=== PATIENT | female | born 2000 | race Caucasian/White ===

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

== ENCOUNTER 2022-10-17 22:05 | Outpatient (CLI) | payer MEDICAID, SELFPAY ==
[2022-10-17 22:31] VITALS: PULSE 108; O2SAT 97
[2022-10-17 22:32] VITALS: BP 121/78; PULSE 101
[2022-10-17 22:41] VITALS: BMI 21.9
[2022-10-17 23:42] LABS: Absolute Neutrophil Count 9.8 X10^3/uL (2.0-7.7); Basophil# 0.07 X10^3/uL; Basophil% 0.5 % (0-1); Eosinophil# 0.26 X10^3/uL; Hematocrit 35.7 % (37-47); Hemoglobin 11.4 g/dL (12.0-15.0); Lymphocyte % 12.4 % (19-41); Mean Corp Hgb Conc 31.9 g/dL (32-36); Mean Corpuscular Hgb 26.5 pg (27.0-32.0); Mean Platelet Vol. 9.8 fl (6.2-12.0); Monocyte# 0.88 X10^3/uL; Monocyte% 6.8 % (0-10); NRBC Flagged by Analyzer 0 % (0-5); Neutrophil % 75.7 % (47-70); Platelet Count 324 K/mm3 (150-450); RBC Distribution Width CV 14.4 % (11.6-14.6); RBC Distribution Width SD 43.7 fl (35.1-43.9); White Blood Count 12.9 K/mm3 (4.4-11.0)
[2022-10-17 23:55] LABS: ALB/GLOB Ratio 0.7 RATIO (0.9-2.4); AST(SGOT) 13 U/L (15-37); Alanine Aminotransfer ALT/SGPT 10 U/L (13-56); Albumin, Serum 2.8 g/dL (3.2-5.0); Alkaline Phosphatase 139 U/L (45-117); Anion Gap 11 (5-15); BUN 11 mg/dL (7-18); BUN/Creat Ratio 20.1 RATIO (10-20); Calcium,Total 9.3 mg/dL (8.5-10.1); Chloride 102 mmol/L (98-107); Creatinine, Serum 0.55 mg/dL (0.55-1.02); EST Glomerular Filtration Rate 151 mL/min (>60); Est Glom Filt Rate - Afr Amer 183 mL/min (>60); Estimated Creatinine Clearance 182.36 ml/min; Globulin 4.2 g/dL (2.2-4.2); Glucose 77 mg/dL (74-106); Potassium 3.2 mmol/L (3.5-5.1); Sodium Level 136 mmol/L (136-145)
[2022-10-18 00:37] LABS: Color, Urine Yellow (Yellow); Glucose, Dipstick Normal (Normal); Leukocyte Esterase-Dipstick 500 /ul (Negative); Nitrite-Dipstick Negative (Negative); Occult Blood-Urine 10 /ul (Negative); Protein-Dipstick 30 mg/dl (Negative); Urine Clarity Sl. Cloudy (Clear); Urine Urobilinogen 1 mg/dl (Normal)
[2022-10-18 00:40] LABS: Urine Bilirubin Dipstick 1 mg/dL (Negative)
[2022-10-18 00:42] LABS: Ketone-Dipstick 150 mg/dl (Negative)
[2022-10-18] MEDS: Ondansetron 4 MG/2 ML Vial IV (01:19)
--- NOTE | 2022-10-20 10:08 | OB.TRI.PN_ITS ---
Progress Notes Progress Note: Female presents at 35w3d, presents to for nausea and vomiting. Laboratory Studies: Laboratory Tests 10/18/22 10/17/22 10/17/22 Range/Units 00:25 23:22 23:22 WBC 12.9 H (4.4-11.0) K/mm3 RBC 4.30 (4.2-5.4) M/mm3 Hgb 11.4 L (12.0-15.0) g/dL Hct 35.7 L (37-47) % MCV 83.0 (81-99) fL MCH 26.5 L (27.0-32.0) pg MCHC 31.9 L (32-36) g/dL RDW Std Deviation 43.7 (35.1-43.9) fl RDW Coeff of Jules 14.4 (11.6-14.6) % Plt Count 324 (150-450) K/mm3 MPV 9.8 (6.2-12.0) fl Immature Gran % (Auto) 2.600 H (0.0-0.9) % Neut % (Auto) 75.7 H (47-70) % Lymph % (Auto) 12.4 L (19-41) % Kimble % (Auto) 6.8 (0-10) % Eos % (Auto) 2.0 (0-5) % Baso % (Auto) 0.5 (0-1) % Absolute Neuts (auto) 9.8 H (2.0-7.7) X10^3/uL Absolute Lymphs (auto) 1.60 (0.83-4.51) X10^3/uL Nucleated RBC % 0 (0-5) % Sodium 136 (136-145) mmol/L Potassium 3.2 L (3.5-5.1) mmol/L Chloride 102 (98-107) mmol/L Carbon Dioxide 23.0 (21.0-32.0) mmol/L Anion Gap 11 (5-15) BUN 11 (7-18) mg/dL Creatinine 0.55 (0.55-1.02) mg/dL Estim Creat Clear Calc 182.36 ml/min Est GFR (MDRD) Af Amer 183 (>60) mL/min Est GFR (MDRD) Non-Af 151 (>60) mL/min BUN/Creatinine Ratio 20.1 H (10-20) RATIO Glucose 77 (74-106) mg/dL Calcium 9.3 (8.5-10.1) mg/dL Total Bilirubin 1.30 H (0.20-1.00) mg/dL AST 13 L (15-37) U/L ALT 10 L (13-56) U/L Alkaline Phosphatase 139 H (45-117) U/L Total Protein 7.0 (6.4-8.2) g/dL Albumin 2.8 L (3.2-5.0) g/dL Globulin 4.2 (2.2-4.2) g/dL Albumin/Globulin Ratio 0.7 L (0.9-2.4) RATIO Urine Color Yellow (Yellow) Urine Clarity Sl. Cloudy (Clear) Urine pH 6.0 (5.0 - 8.0) Ur Specific Ruffin 1.030 (1.002-1.030) Urine Protein 30 H (Negative) mg/dl Urine Glucose (UA) Normal (Normal) mg/dl Urine Ketones 150 A* (Negative) mg/dl Urine Occult Blood 10 H (Negative) /ul Urine Nitrite Negative (Negative) Urine Bilirubin 1 H (Negative) mg/dL Urine Urobilinogen 1 H (Normal) mg/dl Ur Leukocyte Esterase 500 H (Negative) /ul NST 135, moderate variability, accels, no decels, Category 1 Irregular contractions, mild Assessment & Plan (1) Nausea and vomiting: PLAN: Plan PO hydration and 1Liter LR IV bolus Zofran IV for nausea Unable to take PO K for hypokalemia but will follow up outpatient for testing and management D/C home
== END 2022-10-18 02:15 | disposition home or self-care (01) ==
LOC: WPOUT 22:11 → WP 22:12
PROVIDERS: Referring Provider Advanced Practice Midwife; Visit Provider Advanced Practice Midwife
DX: O21.2 Late vomiting of pregnancy (principal); Z3A.35 35 weeks gestation of pregnancy
CPT/HCPCS: 96374; 36415; 59025; 59050; 80053; 81002; 85025; 87086; 87088; J2405

== ENCOUNTER 2022-10-30 22:58 | Outpatient (CLI) | payer MEDICAID, SELFPAY ==
[2022-10-30 23:28] VITALS: PULSE 70; O2SAT 98
[2022-10-30 23:30] VITALS: BP 118/68; PULSE 80; TEMP 37
[2022-10-30 23:41] VITALS: BMI 22.4
--- NOTE | 2022-11-01 08:42 | OB.TRI.NOTE ---
HPI - General General Date of Admission: 10/30/22 Date of Service: 10/30/22 Chief Complaint: rule out labor HPI Narrative ELADIA RINCON, is a 22 F who presents w/ ctxs. PFSH PFSH Medical History Depression Seasonal allergies Home Medications 1 tab PO/SL DAILY 10/17/22 [History Last Taken 10/29/22 21:00] ondansetron HCl 4 mg tablet 4 mg PO Q8H 10/17/22 [History Last Taken 10/17/22 18:00] Allergy/AdvReac Type Severity Reaction Status Date / Time No Known Allergies Allergy Verified 10/30/22 23:39 Social History Smoking Status: Current some day smoker tobacco type: cigarettes NST FHR Rate Baby A Baseline: 120 Variability:: Moderate Accelerations:: 15 x 15 Decelerations:: None NST Reactive:: Yes FHR Category:: Category I Uterine Activity:: irritability, no regular ctxs Assessment & Plan (1) 37 weeks gestation of : PLAN: High risk primigravida at 37-2/7 weeks gestation for false labor after 37 weeks. Discharge home with routine follow-up or return as needed.
== END 2022-10-31 00:17 | disposition home or self-care (01) ==
LOC: WPPAT 23:07 → WP 23:08
PROVIDERS: Visit Provider Obstetrics & Gynecology
DX: O47.1 False labor at or after 37 completed weeks of gestation (principal); O99.333 Smoking (tobacco) complicating pregnancy, third trimester; F17.210 Nicotine dependence, cigarettes, uncomplicated; Z3A.37 37 weeks gestation of pregnancy
CPT/HCPCS: 59025; 59050

== ENCOUNTER 2022-11-10 12:28 | Inpatient (IN) | payer MEDICAID, SELFPAY ==
[2022-11-10] VITALS (48 sets, daily range): BP systolic 103–142; BP diastolic 55–92; PULSE 58–155; RESP 14; TEMP 36.1–37.1; O2SAT 82–100; BMI 26.1
[2022-11-10] MEDS: LACTATED RINGERS 500 ML 999 ML IV (12:35)
[2022-11-10 12:50] LABS: Absolute Lymphocyte Count 2.01 X10^3/uL (0.83-4.51); Absolute Neutrophil Count 11.6 X10^3/uL (2.0-7.7); Basophil# 0.07 X10^3/uL; Basophil% 0.5 % (0-1); Eosinophil# 0.59 X10^3/uL; Eosinophils% 3.9 % (0-5); Hematocrit 37.7 % (37-47); Hemoglobin 11.9 g/dL (12.0-15.0); Lymphocyte # 2.01 X10^3/ul (0.83-4.51); Lymphocyte % 13.2 % (19-41); Mean Corp Hgb Conc 31.6 g/dL (32-36); Mean Corpuscular Hgb 26.4 pg (27.0-32.0); Mean Corpuscular Volume 83.8 fL (81-99); Mean Platelet Vol. 10.7 fl (6.2-12.0); Monocyte# 0.86 X10^3/uL; Monocyte% 5.6 % (0-10); NRBC Flagged by Analyzer 0 % (0-5); Neutrophil # 11.58 X10^3/uL (2.7-7.7); Neutrophil % 75.9 % (47-70); Platelet Count 278 K/mm3 (150-450); RBC Distribution Width CV 15.4 % (11.6-14.6); RBC Distribution Width SD 47.1 fl (35.1-43.9); White Blood Count 15.3 K/mm3 (4.4-11.0)
[2022-11-10] MEDS: Lactated Ringers 1,000 ML 200 ML IV (13:06)
--- NOTE | 2022-11-10 13:08 | PCM.HP.OB ---
HPI - General General Date of Admission: 11/10/22 HPI Narrative ELADIA RINCON, is a 22 F at 38.6 weeks gestation who presents with spontaneous onset of labor. She started having contractions last night that have continued to increase in frequency and pain. Positive movement. Denies any loss of fluid or vaginal bleeding. complicated by uterine size discrepancy. EFW 9%. Maternal Data Information LATASHA Calculator Estimated Delivery Date Method Current WG Current Estimate 11/18/22 Manual 38w 6d PFSH PFSH Medical History Depression Seasonal allergies Home Medications 1 tab PO/SL DAILY 10/17/22 [History Last Taken 10/29/22 21:00] ondansetron HCl 4 mg tablet 4 mg PO Q8H 10/17/22 [History Last Taken 10/17/22 18:00] Allergy/AdvReac Type Severity Reaction Status Date / Time No Known Allergies Allergy Verified 10/30/22 23:39 Social History Smoking Status: Former smoker History Elective abortions Hx Para 0 Spontaneous abortions Hx # Term Pregnancies Ectopic pregnancies Hx # Pregnancies Multiple births # of living children Vital Signs Vital Signs Vital Signs: 11/10/22 12:25 11/10/22 12:25 11/10/22 12:20 Temperature Temperature Source Temporal Pulse Rate 66 Blood Pressure 134/80 H BP Systolic 134 BP Diastolic 80 11/10/22 12:20 Temperature 97.1 F L Temperature Source Pulse Rate Blood Pressure BP Systolic BP Diastolic Weight Weight: 166 lb 14.239 oz Body Mass Index (BMI) 26.1 Labs Labs Labs: Blood Type Pending Antibody Screen Pending Hct 37.7 % (37-47) Hgb 11.9 g/dL (12.0-15.0) L Syphilis Total Ab Pending GBS negative Assessment & Plan (1) 38 weeks gestation of : (2) Spontaneous onset of labor: (3) SGA (small for gestational age), , affecting care of mother, antepartum: (4) Primigravida: PLAN: Plan CE 5cm Admit to labor and delivery Routine labs Start IV fluids and run per orders GBS negative Epidural when indicated Anticipate Dr. Miller notified of admission and is collaborating physicain
[2022-11-10 13:18] LABS: ROM Internal Control Test YES-OK TO RESULT pt. (Internal QC)
[2022-11-10 13:20] LABS: ROM Patient Test POSITIVE (Negative)
[2022-11-10] MEDS: fentaNYL-bupivacaine (epidural) 100 ML BAG EPIDURAL (13:30)
[2022-11-10 13:40] LABS: Syphilis Antibodies Non-reactive
[2022-11-10] MEDS: Ondansetron 4 MG/2 ML Vial IV (15:39)
[2022-11-10] MEDS: Sodium Chloride 0.65% 1 SPRAY SPRAY.BTL 2 SPRAY NASAL (16:30)
[2022-11-10] MEDS: Oxytocin 10 UNITS/ML Vial IM (17:17)
[2022-11-10] MEDS: Oxytocin 15 Units/NS 250ml 15 UNITS/250 ML IV.SOLN 83 UNITS IV (17:22)
--- NOTE | 2022-11-10 17:38 | EX.PCM.OBRPT ---
Assessment & Plan (1) (spontaneous vaginal delivery): Maternal Data Information LATASHA Calculator Estimated Delivery Date Method Current WG Current Estimate 11/18/22 Manual 38w 6d Vaginal Delivery Maternal Presentation Maternal Presentation: Active Labor and Spontaneous Rupture of Membranes Maternal Presentation: that presented in spontaneous labor and was found to have SROM. Operative Information Date of Procedure: 11/10/22 Pre-Operative Diagnosis: Term gestation, Spontaneous labor, SROM Post-Operative Diagnosis: , live female Surgery / Procedure Performed: Spontaneous Vaginal Delivery Type of Anesthesia: Epidural Drain: Pitts to straight drain Estimated Blood Loss: 200 Time of Delivery: 17:12 Findings Description of Procedure: Patient found to be 10 cm/ +1 station. With minimal maternal effort, head delivered over intact perineum followed by remainder of infant body without traction. Vigorous female placed on maternal abdomen and was attended to by nursing staff. Pitocin IM given for active management of the third stage of labor. 3 vessel cord clamped and cut by FOB after delay and infant placed skin to skin with patient. Placenta delivered spontaneously and intact with guidance and maternal effort. Cord began to avulse during delivery of placenta. Two small vaginal abrasions repaired with singe stitch for hemostasis. Perineum intact. EBL 200 cc. APGARS 8/9. Fundus firm 3-4 below U. Patient and infant bonding well at this time. Patient will be formula feeding infant. Presentation: Vertex Amniotic Membrane Rupture Type: Spontaneous Amniotic Fluid Description: Clear Placental Delivery Description: Spontaneous Placenta Disposition: [facility] Cord Vessel Description: 3 Vessels Cord Entanglement: None Infant A Gender: Female (1 minute): 8 (5 minute): 9 Delayed Cord Clamping: Yes Post Vaginal Delivery Medications Given After Delivery: IM Pitocin Episiotomy Description: None Laceration: Vaginal Extension/lac (two small vaginal abrasions ) Complication Complications: None
[2022-11-10] MEDS: Oxymetazoline 0.05% 1 SPRAY SPRAY.BTL NASAL (19:18)
[2022-11-11] VITALS (8 sets, daily range): BP systolic 101–117; BP diastolic 55–66; PULSE 58–82; RESP 16; TEMP 36.2–36.8; O2SAT 97–99
--- NOTE | 2022-11-11 02:55 | NURSING ---
Report received from [facility], taking over pt care at this time.
--- NOTE | 2022-11-11 04:15 | NURSING ---
vaginal abrasions well approximated, no repair needed.
--- NOTE | 2022-11-11 08:47 | PN_ITS ---
Subjective Subjective patient seen at bedside, doing well. Patient reports good pain control. lochia mild. Objective Data Objective Data Vital Signs: Vital Signs Temp Pulse Resp BP Pulse Ox O2 Del Method 98.0 F 63 16 117/66 98 Room Air 11/11/22 07:48 11/11/22 07:48 11/11/22 07:48 11/11/22 07:48 11/11/22 07:48 11/11/22 07:48 Oxygen Delivery Method Room Air Weight: 75.7 kg Body Mass Index (BMI) 26.1 Intake & Output: Intake and Output for Last 24 Hours 11/09/22 11/10/22 11/11/22 23:59 23:59 23:59 Intake Total 1550 / 1550 Output Total 1650 / 1650 800 / 800 Balance -100 / -100 -800 / -800 Lab / Micro Data Result Diagrams: 11/10/22 12:35 Labs: Laboratory Results - last 24 hr 11/10/22 12:20: Vag Amniotic Fld Detect POSITIVE H 11/10/22 12:35: WBC 15.3 H, RBC 4.50, Hgb 11.9 L, Hct 37.7, MCV 83.8, MCH 26.4 L , MCHC 31.6 L, RDW Std Deviation 47.1 H, RDW Coeff of Jules 15.4 H, Plt Count 278, MPV 10.7, Immature Gran % (Auto) 0.900, Neut % (Auto) 75.9 H, Lymph % (Auto) 13.2 L, Kimble % (Auto) 5.6, Eos % (Auto) 3.9, Baso % (Auto) 0.5, Absolute Neuts (auto) 11.6 H, Absolute Lymphs (auto) 2.01, Nucleated RBC % 0 11/10/22 12:35: Blood Type O POSITIVE, Antibody Screen NEGATIVE 11/10/22 12:35: Syphilis Total Ab Non-reactive Physical Exam Const alert and oriented x3 General Appearance: cooperative HEENT normocephalic Neck General: normal visual inspection GI soft to palpation and non-distended GI Narrative: Fundus firm Extremity normal to inspection and no calf tenderness Skin no rashes or lesions noted Neuro oriented x3 and CN's II-XII intact bilaterally Psych mental status grossly normal Assessment & Plan Assessment/Plan (1) (spontaneous vaginal delivery): PLAN: Plan PPD#1 , Doing well Routine care pain mgmt ambulation
--- NOTE | 2022-11-11 08:48 | DCINST_ITS ---
Discharge Instructions Procedure Vaginal Delivery Diet Discharge Diet: No restrictions Activity May resume sexual activity in: 6-8 weeks Dressing / Incision Call your doctor if you observe: Fever of 101 or Higher, Inability to urinate, Using more than 1 pad per hour and Uncontrolled pain Follow Up Care Please Follow Up With: Jenise Salazar MD When: 1-2 weeks post and again at 6 weeks post . [phone] Test Results: Test results from this visit will be discussed in further detail at your follow- up appointment, if applicable. Discharge Plan Admission Admit Date/Time: 11/10/22 12:28 Attending Provider: Amelia Calles Primary Care Provider: Care Physician,No Primary Discharge Orders/Prescriptions Prescriptions: No Action ondansetron HCl [Zofran] 4 mg Tablet 4 mg PO Q8H 1 tab PO.IVFORM DAILY Referrals / Follow Up: Care Physician,No Primary [Primary Care Provider] -
[2022-11-11 09:40] LABS: Amphetamine Urine VISTA NEGATIVE (<1000 ng/mL); Barbiturate Urine VISTA NEGATIVE (< 200 ng/mL); Benzodiazepine Urine VISTA NEGATIVE (< 200 ng/mL); Cocaine Urine VISTA NEGATIVE (< 300 ng/mL); Ecstacy Urine VISTA NEGATIVE (< 500 ng/mL); Methadone Urine VISTA NEGATIVE (< 300 ng/mL); PCP Urine VISTA NEGATIVE (< 25 ng/mL); THC Urine VISTA POSITIVE (< 50 ng/mL); Vista UDS pH Range 7
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
[2022-11-12 01:21] VITALS: BP 103/53; PULSE 57
[2022-11-12 01:22] VITALS: BP 103/53; PULSE 57; RESP 16; TEMP 36.7
[2022-11-12 07:19] VITALS: BP 100/50; PULSE 51; RESP 16; TEMP 36.2
[2022-11-12 07:20] VITALS: BP 100/50; PULSE 51
--- NOTE | 2022-11-12 08:23 | PCM.PN.OB ---
Subjective Subjective Patient seen at bedside. Feeling good. Denies any pain. Ambulating and voiding without difficulty. Lochia decreasing. Desires discharge home today. Objective Data Objective Data Vital Signs: Vital Signs Temp Pulse Resp BP Pulse Ox O2 Del Method 97.2 F L 51 L 16 100/50 L 99 Room Air 11/12/22 07:19 11/12/22 07:20 11/12/22 07:19 11/12/22 07:20 11/11/22 17:15 11/11/22 17:15 Oxygen Delivery Method Room Air Weight: 166 lb 14.239 oz Body Mass Index (BMI) 26.1 Intake & Output: Intake and Output for Last 24 Hours 11/10/22 11/11/22 11/12/22 23:59 23:59 23:59 Intake Total 1550 / 1550 Output Total 1650 / 1650 800 / 800 Balance -100 / -100 -800 / -800 Lab / Micro Data Result Diagrams: 11/10/22 12:35 Labs: Laboratory Results - last 24 hr 11/11/22 09:10: Urine Opiates Screen NEGATIVE, Urine Methadone Screen NEGATIVE, Ur Barbiturates Screen NEGATIVE, Ur Phencyclidine Scrn NEGATIVE, Ur Amphetamines Screen NEGATIVE, MDMA (Ecstasy) Screen NEGATIVE, U Benzodiazepines Scrn NEGATIVE, Urine Cocaine Screen NEGATIVE, U Cannabinoids Screen POSITIVE H, Ur Drug Screen Comment ROS Eyes Eyes: Denies blurry vision, change in vision or spots in vision ENT HEENT: Denies dizziness or headache(s) Cardiovascular Cardiovascular: Denies abdominal pain, chest pain or dyspnea Respiratory/Chest Respiratory/Chest: Denies cough, dyspnea, shortness of breath at rest or shortness of breath with exertion Gastrointestinal Gastrointestinal: Denies abdominal pain, diarrhea or vomiting Genitourinary Genitourinary: Denies change in urinary stream, difficulty urinating or dysuria Musculoskeletal Musculoskeletal: Reports none Integumentary Integumentary: Denies rash Neurologic Neurologic: Denies dizziness, headache(s), memory loss or weakness Physical Exam Const alert and no apparent distress General Appearance: cooperative and comfortable Exam Limitations: no limitations HEENT normocephalic Eyes General Eye: normal appearance of both eyes Neck full ROM General: normal visual inspection Chest Chest: symmetrical chest wall rise Resp normal respiratory effort and normal air movement Effort and Inspection: symmetric chest movement Auscultation: clear to auscultation bilaterally Cardio regular rate and regular rhythm GI normal to inspection, nondistended, normoactive bowel sounds Back/Spine normal ROM Extremity full ROM and no calf tenderness General Extremity: normal exam except as noted Skin no rashes or lesions noted Neuro CN's II-XII intact bilaterally Psych mental status grossly normal Assessment & Plan (1) (spontaneous vaginal delivery): PLAN: Plan PPD 2 Routine care Formula feeding D/C home with follow up in office
--- NOTE | 2022-11-12 08:24 | DCINST_ITS ---
Discharge Instructions Diet Discharge Diet: No restrictions Activity Discharge Activity: Return to Normal Activity, May Shower and May Take a Tub Bath May resume sexual activity in: 6-8 weeks Weight Bearing Status: Weight bearing as tolerated Dressing / Incision Call your doctor if you observe: Fever of 101 or Higher, Inability to urinate, Using more than 1 pad per hour and Uncontrolled pain Follow Up Care Please Follow Up With: Jenise Salazar MD When: Within 10 days Test Results: Test results from this visit will be discussed in further detail at your follow- up appointment, if applicable. Discharge Plan Admission Admit Date/Time: 11/10/22 12:28 Primary Reason for Your Visit: Labor and Delivery Attending Provider: Amelia Calles Primary Care Provider: Care Physician,Ryanne Primary Discharge Orders/Prescriptions Prescriptions: New oxymetazoline [Nasal [place] (oxymetazoline)] 0.05 % [place],Non-Aerosol 1 spray NASAL BID PRN (Reason: NASAL CONGESTION) Qty: 0 0RF Continued 1 tab PO.IVFORM DAILY Discontinued ondansetron HCl [Zofran] 4 mg Tablet 4 mg PO Q8H Referrals / Follow Up: Amelia Calles CNM [Med Staff - Adv Practice Prof] - Care Physician,No Primary [Primary Care Provider] - Disposition Disposition (needs filled in before D/C Order can be placed): Home, Self Care
== END 2022-11-12 11:48 | disposition home or self-care (01) | DRG 560 ==
LOC: WPOUT 12:30 → WP 12:30
PROVIDERS: Obstetrics & Gynecology; Admitting Provider Advanced Practice Midwife; Visit Provider Advanced Practice Midwife
DX: O36.5930 Maternal care for other known or suspected poor fetal growth, third trimester, not applicable or unspecified (principal); Z37.0 Single live birth; O70.0 First degree perineal laceration during delivery; Z3A.38 38 weeks gestation of pregnancy; Z87.891 Personal history of nicotine dependence
CPT/HCPCS: 59025; 59050; 80307; 84112; 85025; 86780; 86850; 86900; 86901; 99221; J7120; G0378; J2405

== ENCOUNTER 2023-11-08 17:32 | Emergency (ER) | payer MEDICAID, SELFPAY ==
[2023-11-08 17:34] VITALS: BP 119/78; PULSE 139; RESP 18; TEMP 36.3; O2SAT 96; BMI 18.5
--- NOTE | 2023-11-08 18:08 | RAD_ITS ---
EXAM: XR LEFT HAND COMPLETE, 3 OR MORE VIEWS CLINICAL INDICATION: INJURY TECHNIQUE: Frontal, lateral and oblique views of the left hand. COMPARISON: No relevant prior studies available. FINDINGS: BONES/JOINTS: Unremarkable. No acute fracture. No subluxation. Normal alignment. Preservation of the joint space. No sclerotic or destructive changes observed. SOFT TISSUES: Unremarkable. No soft tissue swelling or gas. No radiopaque foreign body. RAD/Hand Min 3 Views IMPRESSION: Negative left hand x-rays. Electronically Signed: Wily Isaac MD at 18:56 EDT ,
--- NOTE | 2023-11-08 18:22 | RAD_ITS ---
EXAM: XR RIGHT HAND COMPLETE, 3 OR MORE VIEWS CLINICAL INDICATION: injury TECHNIQUE: Frontal, lateral and oblique views of the right hand. COMPARISON: No relevant prior studies available. FINDINGS: BONES/JOINTS: Unremarkable. No acute fracture. No subluxation. Normal alignment. Preservation of the joint space. No sclerotic or destructive changes observed. SOFT TISSUES: Unremarkable. No soft tissue swelling or gas. No radiopaque foreign body. RAD/Hand Min 3 Views IMPRESSION: Negative right hand x-rays. Electronically Signed: Wily Isaac MD at 18:56 EDT ,
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
[2023-11-08 19:22] VITALS: BP 112/64; PULSE 102; RESP 16; TEMP 36.8; O2SAT 100
== END 2023-11-08 19:23 | disposition home or self-care (01) ==
PROVIDERS: Emergency Provider Emergency Medicine; Visit Provider Emergency Medicine
DX: S60.221A Contusion of right hand, initial encounter (principal); S60.222A Contusion of left hand, initial encounter; W22.09XA Striking against other stationary object, initial encounter; Z87.891 Personal history of nicotine dependence
CPT/HCPCS: 73130; 99282

== ENCOUNTER 2023-11-20 13:42 | Emergency (ER) | payer MEDICAID, SELFPAY ==
[2023-11-20 13:42] VITALS: BP 146/85; PULSE 119; RESP 16; TEMP 36.6; O2SAT 99; BMI 18.1
--- NOTE | 2023-11-20 14:13 | EDS_ITS ---
HPI <TASHA Dai - Last Filed: 11/20/23 16:44> HPI - Female History of Present Illness Chief Complaint: Narrative Narrative: Patient presenting today after being sent over from the care center for a serum hCG. She reports that she took 4 at home tests on 11/13, they all came back positive. She saw the care center on Friday, they performed a transvaginal ultrasound which was unremarkable appearing, they wanted her to have her serum hCG levels checked to rule out miscarriage. She reports that she is . She denies any abdominal/pelvic pain or vaginal bleeding. PFSH <TASHA Dai - Last Filed: 11/20/23 16:44> PFSH Medical History Depression IUGR (intrauterine growth restriction) Seasonal allergies (spontaneous vaginal delivery) Home Medications 1 tab PO.IVFORM DAILY pregancy 10/17/22 [History Last Taken 11/10/22 11:00] oxymetazoline 0.05 % nasal spray (Nasal [place] (oxymetazoline)) 1 spray NASAL BID PRN NASAL CONGESTION #0 mL 11/12/22 [Rx Last Taken Unknown] Allergy/AdvReac Type Severity Reaction Status Date / Time No Known Allergies Allergy Verified 11/20/23 13:44 Social History Smoking Status: Former smoker ROS <TASHA Dai - Last Filed: 11/20/23 16:44> ROS ED Constitutional Constitutional ED: Denies chills or fever(s) Cardiovascular Cardiovascular: Denies chest pain Respiratory/Chest Respiratory/Chest: Denies cough or dyspnea Gastrointestinal Gastrointestinal: Denies abdominal pain, nausea or vomiting Genitourinary Genitourinary ED: Denies dysuria, hematuria or urinary urgency Musculoskeletal Musculoskeletal: Denies arthralgias or myalgias Integumentary Denies rash Neurologic Neurologic: Denies weakness EXAM <TASHA Dai - Last Filed: 11/20/23 16:44> Physical Exam Const Vital Signs: 11/20/23 13:42 Temperature 97.8 F Temperature Source Temporal Pulse Rate 119 H Respiratory Rate 16 Blood Pressure 146/85 H Blood Pressure Mean 105 Pulse Ox 99 Oxygen Delivery Method Room Air Positive well nourished, well developed and no apparent distress General Appearance ED: well developed HEENT Reports normocephalic and head/scalp atraumatic Mouth ED: Yes moist mucous membranes normal Eyes PERRL and EOMs intact bilaterally Neck full ROM and supple Chest Wall inspection of chest normal Resp normal respiratory effort and clear to auscultation bilaterally Cardio regular rate and regular rhythm GI soft to palpation, non-tender, non-distended and no masses Back/Spine normal ROM and normal to inspection Extremity normal to inspection and full ROM Neuro oriented x3, CN's II-XII intact bilaterally, moves all extremities, no focal motor deficits and no sensory deficits noted Sensorium / Orientation: awake and alert Psych mental status grossly normal and thought process normal Skin no rashes or lesions noted and no wounds <Dr. Adonis Mccloud MD - Last Filed: 11/20/23 16:15> Physical Exam Const Vital Signs: 11/20/23 13:42 Temperature 97.8 F Temperature Source Temporal Pulse Rate 119 H Respiratory Rate 16 Blood Pressure 146/85 H Blood Pressure Mean 105 Pulse Ox 99 Oxygen Delivery Method Room Air MDM <TASHA Dai - Last Filed: 11/20/23 16:44> MDM MDM Narrative Medical decision making narrative: Patient presenting today requesting a serum hCG. She had a transvaginal ultrasound on Friday that came back unremarkable. They called her today and encouraged that she come in and have a serum hCG quant. This was obtained and is 1257. Given she is not having any vaginal bleeding or pelvic/abdominal pain, I do feel she can follow-up as an outpatient. She does have an appointment scheduled in the next few weeks. Return instructions given and patient will be discharged home stable condition. I have personally performed a face to face assessment of the patient and have reviewed the MELODY Note. I performed a substantive portion of the visit including all aspects of the following. My bailey findings include: History is 23-year-old female was at a local care center they did a recent ultrasound about 4 to 5 days ago did not see anything and wanted her evaluated. She denies any pelvic pain. Any vaginal bleeding. She is Ab0. Denies any complaints. Exam is [23-year-old female. Vital signs stable afebrile. No distress. HEENT exam normal. Lungs clear. Heart regular rhythm. Rate about 90 no murmur. Abdomen soft, nontender, nondistended normal bowel sounds no peritoneal signs. Absolutely no abdominal tenderness. Moving all 4 extremities. Nontender no edema. Neurologically she is awake and alert with no focal motor deficits.] Medical Decision Making [23-year-old female quant is 1257. Prior labs showed a blood type of O+. She is having no pain and no bleeding she needs no further testing today. She will follow-up with her outpatient center she has appointment scheduled in about 3 weeks. She can have imaging done at that time. She is comfortable with the plan.] Other additions or changes: [None] Lab Data Attestation: I reviewed the patient's lab results. Labs: Laboratory Results - last 24 hr 11/20/23 14:14 HCG, Quant 1257 H <Dr. Adonis Mccloud MD - Last Filed: 11/20/23 16:15> [facility] MDM Narrative Medical decision making narrative: I have personally performed a face to face assessment of the patient and have reviewed the MELODY Note. I performed a substantive portion of the visit including all aspects of the following. My bailey findings include: History is 23-year-old female was at a local care center they did a recent ultrasound about 4 to 5 days ago did not see anything and wanted her evaluated. She denies any pelvic pain. Any vaginal bleeding. She is Ab0. Denies any complaints. Exam is [23-year-old female. Vital signs stable afebrile. No distress. HEENT exam normal. Lungs clear. Heart regular rhythm. Rate about 90 no murmur. Abdomen soft, nontender, nondistended normal bowel sounds no peritoneal signs. Absolutely no abdominal tenderness. Moving all 4 extremities. Nontender no edema. Neurologically she is awake and alert with no focal motor deficits.] Medical Decision Making [23-year-old female quant is 1257. Prior labs showed a blood type of O+. She is having no pain and no bleeding she needs no further testing today. She will follow-up with her outpatient center she has appointment scheduled in about 3 weeks. She can have imaging done at that time. She is comfortable with the plan.] Other additions or changes: [None] Lab Data Labs: Laboratory Results - last 24 hr 11/20/23 14:14 HCG, Quant 1257 H Discharge Plan Triage Chief Complaint: ED Midlevel Provider: Shira Thornton ED Provider: Adonis Mccloud Dx/Rx/DC Orders Clinical Impression: Elevated serum hCG Instructions: HCG (Blood) Prescriptions: No Action 1 tab PO.IVFORM DAILY oxymetazoline [Nasal [place] (oxymetazoline)] 0.05 % [place],Non-Aerosol 1 spray NASAL BID PRN (Reason: NASAL CONGESTION) Qty: 0 0RF Primary Care Provider: Care Physician,No Primary Referrals: Care Physician,No Primary [Primary Care Provider] - Activity Restrictions/Additional Instructions: Follow-up with OB and return for any concerning symptoms. Disposition Disposition: Home, Self Care
[2023-11-20 14:51] LABS: hCG Titer Quant., Serum 1257 mIU/mL (1-3)
[2023-11-20 15:42] VITALS: BP 115/77; PULSE 99; RESP 18; O2SAT 98
[2023-11-20 16:45] VITALS: BP 128/99; PULSE 96; RESP 18; TEMP 36.3; O2SAT 94
== END 2023-11-20 16:47 | disposition home or self-care (01) ==
PROVIDERS: Physician Assistant; Emergency Provider Emergency Medicine; Visit Provider Emergency Medicine
DX: Z32.01 Encounter for pregnancy test, result positive (principal); Z87.891 Personal history of nicotine dependence
CPT/HCPCS: 84702; 99282; A4216

== ENCOUNTER 2024-11-11 22:13 | Emergency (ER) | payer MEDICAID, SELFPAY ==
[2024-11-11 22:14] VITALS: BP 121/72; PULSE 87; RESP 15; TEMP 36.2; O2SAT 100; BMI 19.2
--- NOTE | 2024-11-11 22:17 | US_ITS ---
PROCEDURE: TRANSVAGINAL W/PREG US 11/11/2024 REASON FOR EXAM: VAGINAL BLEEDING AND PAIN, TECHNIQUE: Transvaginal pelvic ultrasound FINDINGS: Measurements: Uterus: 7.9 x 4.8 x 4.1 with a volume of mL Endometrial Thickness: 15 mm Right Ovary: 3.1 x 2.6 x 2.6 with a volume of mL. Left Ovary: Nonvisualized mL. Uterus: Anteverted. Normal contour and myometrial echotexture. Endometrium: Normal echotexture. No intrauterine gestational sac. Right ovary: Normal size and echotexture. Left ovary: Not visualized Other adnexal findings: None. Cul-de-sac: Minimal free fluid in the pelvis within normal limits. No tenderness. US/Transvaginal w/Preg US IMPRESSION: NORMAL TRANSVAGINAL PELVIC ultrasound without intrauterine gestational sac. Di fferential diagnosis includes an early intrauterine , early ectopic , or missed . Correlati on with serial beta HCG measurements is recommended.. Reading Location: [id number]
--- NOTE | 2024-11-11 22:20 | ED.VIS.FEGU ---
HPI HPI - Female History of Present Illness Chief Complaint: Vag Bld, Preg Narrative Narrative: Chief complaint and HPI: Vaginal bleeding. 24-year-old female who is A1 presents for evaluation of vaginal bleeding and pelvic cramping in . Patient states her last menstrual period was October 06. She states she had a positive test the first week of October. Patient states around 5 AM this morning she began having vaginal bleeding and pelvic cramping. Associated symptom is lightheadedness. Patient states that she went to a [facility] on 11/06 in which she had an ultrasound. She states at that time there was no IUP. Patient denies any fever, chills, shortness of breath, chest pain, dysuria, nausea, vomiting, diarrhea, constipation. Review of systems: See HPI Medications: As listed on the chart Allergies: As listed on the chart PFSH: Per chart Vital signs: As listed on the chart. Reviewed. Physical exam: Gen: A&O x3, NAD Head: Normocephalic, atraumatic Eyes: No sclera icterus, conjunctiva clear ENT: Moist mucous membranes Neck: Trachea midline, No JVD CV: RRR, no murmurs, no peripheral edema Resp: Lungs CTA BL, no w/r/c GI: Abd soft, non-distended, non-tender, no r/r/g Pelvic: Normal external genitalia. No lesions, masses, or rashes appreciated. + Vaginal bleeding. Cervix is non-friable. No cervical motion tenderness appreciated. Patient has bleeding from cervical os. Cervical os is closed. Musc: Full ROM, no deformity Skin: Warm, dry Neuro: Alert, oriented, grossly intact, sensation intact Psych: Cooperative, appropriate mood and affect [facility] Medical History Depression IUGR (intrauterine growth restriction) Seasonal allergies (spontaneous vaginal delivery) Home Medications ?Medication ?Instructions ?Recorded ?Last Taken ?Type 1 tab PO.IVFORM DAILY pregancy 10/17/22 11/10/22 11:00 History oxymetazoline 0.05 % nasal spray 1 spray NASAL BID PRN NASAL 11/12/22 Unknown Rx (Nasal [place] (oxymetazoline)) CONGESTION #0 mL diphenhydramine HCl 25 mg capsule 50 mg PO QHS 11/11/24 Unknown History (Benadryl) Allergy/AdvReac Type Severity Reaction Status Date / Time No Known Allergies Allergy Verified 11/11/24 22:14 Social History Smoking Status: Unknown if ever smoked EXAM Physical Exam Const Vital Signs: 11/11/24 22:14 Temperature 97.2 F L Temperature Source Temporal Pulse Rate 87 Respiratory Rate 15 Blood Pressure 121/72 H Blood Pressure Mean 88 Pulse Ox 100 Oxygen Delivery Method Room Air MDM MDM MDM Narrative Medical decision making narrative: 24-year-old female who is A1 presents for evaluation of vaginal bleeding and pelvic cramping in . Differential diagnosis includes but is not limited to complete , incomplete , anemia, electrolyte abnormality, UTI, ectopic . NS bolus ordered. Laboratory workup ordered including transvaginal ultrasound. CBC without leukocytosis. Patient has known anemia with a hemoglobin of 10.6. BMP relatively unremarkable. UA positive for blood likely from vaginal bleeding. Mild dehydration with ketones. Negative for UTI or bacteria. Beta-hCG 303. You would expect this to be higher given patient's last known menstrual cycle. Patient does not know her previous beta-hCG. Transvaginal ultrasound without intrauterine gestational sac. Differential diagnosis includes an early , early ectopic , or missed . I suspect given her beta-hCG levels as well as ultrasound findings that patient is miscarrying. Patient does not know the name of the physician who she saw at the clinic. I do not know the physicians that cover there. On chart review, patient did see Amelia Calles in 2022 with her previous . Therefore their service was contacted. I spoke with Dr. Calles. She agrees that patient is likely miscarrying. Plan is to trend beta-hCG. Follow-up in their office. Patient was updated of all the results and the plan. She confirmed understanding. Return precautions explained. Patient will be discharged home with follow-up with [facility] and an order for beta-hCG in 48 hours. Patient's lightheadedness has resolved. Impression: 1. Vaginal bleeding and pelvic cramping in early 2. Suspected miscarriage 3. Chronic anemia Lab Data Labs: Laboratory Results - last 24 hr 11/11/24 11/11/24 22:25 22:30 WBC 8.7 RBC 4.52 Hgb 10.6 L Hct 34.9 L MCV 77.2 L MCH 23.5 L MCHC 30.4 L RDW Std Deviation 46.7 H RDW Coeff of Jules 16.6 H Plt Count 306 MPV 10.3 Immature Gran % (Auto) 0.300 Neut % (Auto) 57.7 Lymph % (Auto) 30.9 Smith % (Auto) 8.1 Eos % (Auto) 2.5 Baso % (Auto) 0.5 Absolute Neuts (auto) 5.0 Absolute Lymphs (auto) 2.68 Nucleated RBC % 0 Sodium 140 Potassium 3.6 Chloride 105 Carbon Dioxide 24.6 Anion Gap 11 BUN 10 Creatinine 0.66 L Estim Creat Clear Calc 132.12 Est GFR (MDRD) Non-Af 127 BUN/Creatinine Ratio 15.5 Glucose 111 H Calcium 9.3 HCG, Quant 303 H Urine Color Yellow Urine Clarity Clear Urine pH 6.0 Ur Specific Grayson 1.020 Urine Protein 30 H Urine Glucose (UA) Normal Urine Ketones 5 H Urine Occult Blood 250 H Urine Nitrite Negative Urine Bilirubin Negative Urine Urobilinogen 1 H Ur Leukocyte Esterase 100 H Urine RBC 0 SEEN Urine WBC 5-10 SEEN Ur Squamous Epith Cells 0-5 SEEN Urine Bacteria RARE Urine Mucus 2+ Radiography Diagnostic Testing: Clinical Impression(s) from Imaging Studies Obstetrics Ultrasound 11/11/24 22:17 IMPRESSION: NORMAL TRANSVAGINAL PELVIC ultrasound without intrauterine gestational sac. Differential diagnosis includes an early intrauterine , early ectopic , or missed . Correlation with serial beta HCG measurements is recommended.. Reading Location: [facility] [place] Discharge Plan Triage Chief Complaint: Vag Bld, Preg ED Provider: Real Upton Dx/Rx/DC Orders Prescriptions: No Action 1 tab PO.IVFORM DAILY oxymetazoline [Nasal [place] (oxymetazoline)] 0.05 % [place],Non-Aerosol 1 spray NASAL BID PRN (Reason: NASAL CONGESTION) Qty: 0 0RF diphenhydramine HCl [Benadryl] 25 mg capsule 50 mg PO QHS Primary Care Provider: Care Physician,No Primary Referrals: Care Physician,No Primary [Primary Care Provider] - Print Language: Urdu
[2024-11-11] MEDS: 0.9% Normal Saline (1000mL) 1,000 ML 999 ML IV (22:38)
[2024-11-11 22:46] LABS: Red Blood Cells-Urine 0 SEEN /hpf (0-5)
[2024-11-11 22:47] LABS: Absolute Lymphocyte Count 2.68 X10^3/uL (0.83-4.51); Basophil# 0.04 X10^3/uL; Basophil% 0.5 % (0-1); Eosinophil# 0.22 X10^3/uL; Eosinophils% 2.5 % (0-5); Hematocrit 34.9 % (37-47); Hemoglobin 10.6 g/dL (12.0-15.0); Lymphocyte # 2.68 X10^3/ul (0.83-4.51); Lymphocyte % 30.9 % (19-41); Mean Corp Hgb Conc 30.4 g/dL (32-36); Mean Corpuscular Hgb 23.5 pg (27.0-32.0); Mean Corpuscular Volume 77.2 fL (81-99); Mean Platelet Vol. 10.3 fl (6.2-12.0); Monocyte% 8.1 % (0-10); NRBC Flagged by Analyzer 0 % (0-5); Neutrophil # 5.01 X10^3/uL (2.7-7.7); Neutrophil % 57.7 % (47-70); Platelet Count 306 K/mm3 (150-450); RBC Distribution Width CV 16.6 % (11.6-14.6); RBC Distribution Width SD 46.7 fl (35.1-43.9); Red Blood Count 4.52 M/mm3 (4.2-5.4); White Blood Count 8.7 K/mm3 (4.4-11.0)
[2024-11-11 22:50] LABS: Color, Urine Yellow (Yellow); Glucose, Dipstick Normal (Normal); Ketone-Dipstick 5 mg/dl (Negative); Leukocyte Esterase-Dipstick 100 /ul (Negative); Nitrite-Dipstick Negative (Negative); Occult Blood-Urine 250 /ul (Negative); Protein-Dipstick 30 mg/dl (Negative); Urine Bilirubin Dipstick Negative (Negative); Urine Clarity Clear (Clear); Urine Urobilinogen 1 mg/dl (Normal)
[2024-11-11 23:01] LABS: Bacteria RARE /hpf (None Seen); Mucous, Urine 2+ /hpf (<or=2+); Squamous Epithelial Cells - UA 0-5 SEEN /hpf (5-10); White Blood Cells 5-10 SEEN /hpf (0-5)
[2024-11-11 23:41] LABS: Anion Gap 11 (5-15); BUN 10 mg/dL (4-19); BUN/Creat Ratio 15.5 RATIO (10-20); Calcium,Total 9.3 mg/dL (7.6-11.0); Carbon Dioxide 24.6 mmol/L (21.0-32.0); Chloride 105 mmol/L (98-108); Creatinine, Serum 0.66 mg/dL (0.70-1.20); EST Glomerular Filtration Rate 127 (>60); Estimated Creatinine Clearance 132.12 ml/min (50-250); Glucose 111 mg/dL (70-99); Potassium 3.6 mmol/L (3.3-5.1); Sodium Level 140 mmol/L (133-145)
[2024-11-11 23:47] LABS: hCG Titer Quant., Serum 303 mIU/mL (<9 non-preg)
[2024-11-12 00:14] VITALS: BP 101/78; PULSE 89; RESP 16; O2SAT 98
== END 2024-11-12 00:46 | disposition home or self-care (01) ==
PROVIDERS: Emergency Provider Surgery; Referring Provider Surgery; Visit Provider Surgery
DX: O20.9 Hemorrhage in early pregnancy, unspecified (principal); O26.899 Other specified pregnancy related conditions, unspecified trimester; R10.2 Pelvic and perineal pain; O99.019 Anemia complicating pregnancy, unspecified trimester; Z3A.00 Weeks of gestation of pregnancy not specified; Z87.59 Personal history of other complications of pregnancy, childbirth and the puerperium
CPT/HCPCS: 76817; 80048; 81001; 84702; 85025; 96360; 96361; 99283; A4216

== ENCOUNTER 2024-12-06 21:13 | Emergency (ER) | payer MEDICAID, SELFPAY ==
[2024-12-06 21:14] VITALS: BP 97/61; PULSE 105; RESP 18; TEMP 36.4; O2SAT 100; BMI 18.9
--- NOTE | 2024-12-06 22:00 | RAD_ITS ---
PROCEDURE: KNEE 4 OR MORE VIEWS 12/06/2024 REASON FOR EXAM: INJURY TECHNIQUE: 4 view(s) of the left knee COMPARISON: None FINDINGS: No displaced fracture or traumatic malalignment. Joint spaces are maintained. No significant joint effusion, though positioning limits evaluation. Soft tissues are unremarkable. RAD/Knee 4 or More Views IMPRESSION: No displaced fracture of the left knee. Reading Location: [facility]
--- NOTE | 2024-12-06 22:31 | ED.VIS.LOWEX ---
HPI History of Present Illness HPI Narrative: Patient presents with injury to her left knee that occurred today. Patient states she hit it on a metal railing. Patient states her pain is mainly over the anterior aspect of the left knee. Patient describes her pain as a pressure. Patient states it is worse with weightbearing. Patient states it seems to get better if she keeps it in a flexed position. Patient denies any paresthesias or weakness. Patient denies any other injuries. Chief Complaint: Lower Extremity Injury Informant: patient Occured/Mechanism Mechanism/Context: Yes direct blow Onset/Context/Timing Onset: Today Context: Sudden Onset Timing: Continuous Quality of Pain: - (Pressure) Location: Left knee Worsened by: Weightbearing and movement Relieved by: Keeping it in a flexed position Associated Symptoms Associated Symptoms: Negative for Parasthesia, Weakness or Loss of Funtion PFSH PFSH Medical History (spontaneous vaginal delivery) IUGR (intrauterine growth restriction) Seasonal allergies Depression Home Medications ?Medication ?Instructions ?Recorded ?Last Taken ?Type 1 tab PO.IVFORM DAILY pregancy 10/17/22 11/10/22 11:00 History oxymetazoline 0.05 % nasal spray 1 spray NASAL BID PRN NASAL 11/12/22 Unknown Rx (Nasal [place] (oxymetazoline)) CONGESTION #0 mL diphenhydramine HCl 25 mg capsule 50 mg PO QHS 11/11/24 Unknown History (Benadryl) Allergy/AdvReac Type Severity Reaction Status Date / Time No Known Allergies Allergy Verified 12/06/24 21:14 Surgical History no surgical history no surgical history Social History household members: family housing: house Smoking Status: Unknown if ever smoked ROS ROS ED Constitutional Constitutional ED: Denies chills or fever(s) Eyes Eyes: Denies blurry vision or change in vision ENT ENT ED: Denies rhinorrhea or sore throat Cardiovascular Cardiovascular: Denies chest pain or palpitations Respiratory/Chest Respiratory/Chest: Denies cough or dyspnea Gastrointestinal Gastrointestinal: Denies nausea or vomiting Genitourinary Genitourinary ED: Denies dysuria or hematuria Musculoskeletal Musculoskeletal: Denies back pain or neck pain Integumentary Denies abscess or rash Neurologic Neurologic: Denies headache(s) or weakness Allergic/Immunologic Allergic/Immunologic ED: Denies mouth swelling or urticaria EXAM Physical Exam Const Vital Signs: 12/06/24 21:14 Temperature 97.5 F L Temperature Source Temporal Pulse Rate 105 H Respiratory Rate 18 Blood Pressure 97/61 Blood Pressure Mean 73 Pulse Ox 100 Oxygen Delivery Method Room Air Positive well nourished and well developed General Appearance ED: well developed and NAD HEENT Reports moist mucous membranes Neck full ROM and supple Extremity Extremity Narrative: There is tenderness with mild edema and ecchymosis over the anteromedial aspect of the left knee. There is no bony crepitance or step-off. There is no deformity noted. Range of motion was slightly limited in all motions of the left knee secondary to pain. Strength is 5/5 bilaterally in the lower extremities. There are no sensory deficits noted. Extensor mechanism is intact. Pedal pulses are equal bilaterally. Neuro oriented x3, CN's II-XII intact bilaterally, moves all extremities and no sensory deficits noted Sensorium / Orientation: alert Motor Exam: strength 5/5 throughout Psych mental status grossly normal MDM MDM MDM Narrative Medical decision making narrative: Differential diagnosis includes contusion, sprain, and occult fracture. X-rays of the left knee will be obtained to assess for fracture. Radiography Diagnostic Testing: Clinical Impression(s) from Imaging Studies Knee X-Ray 12/06/24 22:00 IMPRESSION: No displaced fracture of the left knee. Reading Location: [facility] X-rays of the left knee were obtained. There are 4 views. On my independent interpretation, there is no acute fracture. There is no joint effusion. There is no soft tissue swelling. Radiologist also interpreted the x-rays and agrees. Treatment and Re-Evaluation Narrative: Patient was advised of her findings. Patient was instructed to ice and elevate the left knee. Patient was instructed take Tylenol or ibuprofen as needed for pain. Patient was instructed to follow-up with her primary care physician in 5 to 7 days. Patient understood and was agreeable with the plan. All questions were answered. Discharge Plan Triage Chief Complaint: Lower Extremity Injury ED Provider: Isidro Orr Dx/Rx/DC Orders Clinical Impression: Contusion of left knee, initial encounter, Tobacco use Instructions: ED Soft Tissue Contusion Prescriptions: No Action 1 tab PO.IVFORM DAILY oxymetazoline [Nasal [place] (oxymetazoline)] 0.05 % [place],Non-Aerosol 1 spray NASAL BID PRN (Reason: NASAL CONGESTION) Qty: 0 0RF diphenhydramine HCl [Benadryl] 25 mg capsule 50 mg PO QHS Primary Care Provider: Care Physician,No Primary Referrals: Care Physician,No Primary [Primary Care Provider] - Print Language: Ethiopian Disposition Disposition: Home, Self Care
[2024-12-06 22:46] VITALS: BP 115/69; PULSE 81; RESP 14; TEMP 36.3; O2SAT 100
== END 2024-12-06 22:46 | disposition home or self-care (01) ==
PROVIDERS: Emergency Provider Emergency Medicine; Visit Provider Emergency Medicine
DX: S80.02XA Contusion of left knee, initial encounter (principal); W22.09XA Striking against other stationary object, initial encounter
CPT/HCPCS: 73564; 99282